=== PATIENT | female | born 1990 | race Caucasian/White ===

== ENCOUNTER → 2016-03-29 | Outpatient (REF) | LOC: ZLAB.WCH 11:32 | DX: Z01.89 Encounter for other specified special examinations (principal) ==

== ENCOUNTER → 2016-04-23 | Outpatient (REF) | LOC: ZLAB.WCH 09:11 | DX: Z01.89 Encounter for other specified special examinations (principal) ==

== ENCOUNTER → 2016-04-24 | Outpatient (REF) | LOC: ZLAB.WCH 10:53 | DX: Z01.89 Encounter for other specified special examinations (principal) ==

== ENCOUNTER → 2016-05-11 | Outpatient (REF) | LOC: ZLAB.WCH 15:07 | DX: Z01.89 Encounter for other specified special examinations (principal) ==

== ENCOUNTER → 2016-05-25 | Outpatient (REF) | LOC: ZLAB.WCH 16:57 | DX: Z01.89 Encounter for other specified special examinations (principal) ==

== ENCOUNTER → 2016-07-06 | Outpatient (REF) | LOC: ZLAB.WCH 10:24 | DX: Z01.89 Encounter for other specified special examinations (principal) ==

== ENCOUNTER → 2016-09-06 | Outpatient (REF) | LOC: ZLAB.WCH 10:15 | DX: Z01.89 Encounter for other specified special examinations (principal) ==

== ENCOUNTER → 2016-09-20 | Outpatient (REF) | LOC: ZLAB.WCH 10:38 | DX: Z01.89 Encounter for other specified special examinations (principal) ==

== ENCOUNTER → 2017-03-30 | Outpatient (REF) | LOC: COL.CARD 07:47 | DX: Z01.89 Encounter for other specified special examinations (principal) ==

== ENCOUNTER → 2017-04-04 | Outpatient (REF) ==
[~2017-04-04] MED LIST: CALCIUM CARBON650 M2; FERRO-TIME325 MG PO; IBU600 MG PO; PRENATAL MVI; UNISOM25 MG PO
== END ==
LOC: COL.CARD 08:21
DX: Z01.89 Encounter for other specified special examinations (principal)

== ENCOUNTER 2017-04-28 11:43 | Inpatient (IN) | payer OTHER ==
[~2017-04-28] VITALS: Ht 152.4 cm; Wt 70.0 kg
[2017-04-28] VITALS (28 sets, daily range): BP systolic 94–128; BP diastolic 54–87; PULSE 63–103; TEMP 97.8–99
[2017-04-28] MEDS ORDERED: PRENATAL MVI (12:08)
[2017-04-28] MEDS ORDERED: FERRO-TIME325 MG PO (12:08)
[2017-04-28] MEDS ORDERED: CALCIUM CARBON650 M2 (12:09)
[2017-04-28] MEDS ORDERED: UNISOM25 MG PO (12:09)
[2017-04-28 12:53] LABS: BASO % 0.4 % (0.0-2.0); EOS # 0.1 (0.0-0.7); EOS % 1.3 % (0-4.0); GRAN % 71.3 % (42.2-75.2); LYMPH # 1.8 (1.2-3.4); LYMPH % 18.5 % (20.0-51.0); MEAN CELL VOLUME 86 fl (80.0-100.0); MEAN CORPUSCULAR HEMOGLOBIN 30 pg (27.0-31.0); MEAN CORPUSCULAR HGB CONC 35 g/dl (33.0-37.0); MEAN PLATELET VOLUME 10.5 fl (7.4-10.4); MONO # 0.8 (0.1-0.6); MONO % 7.8 % (1.7-9.3); PLATELET COUNT 168 K/mm3 (130-400); RED BLOOD COUNT 4.01 M/mm3 (4.10-5.30); REDCELL DISTRIBUTION WIDTH-CV 13.3 % (11.5-14.5)
[2017-04-28 12:58] LABS: HEMATOCRIT 34.3 % (37.0-47.0)
[2017-04-29] VITALS (31 sets, daily range): BP systolic 96–138; BP diastolic 55–84; PULSE 72–111; TEMP 97.6–98.3
[2017-04-30 07:00] VITALS: BP 117/77; PULSE 78; TEMP 97.4
[2017-04-30 16:40] VITALS: BP 111/68; PULSE 77; TEMP 97.9
[2017-04-30 20:30] VITALS: BP 109/67; PULSE 81; TEMP 98.1
[2017-05-01 09:00] VITALS: BP 115/72; PULSE 89; TEMP 97.6
[2017-05-01] MEDS ORDERED: IBU600 MG PO (09:29)
[2017-05-01 17:00] VITALS: BP 105/71; PULSE 91; TEMP 97.5
[2017-05-01 19:45] VITALS: BP 122/78; PULSE 88; TEMP 98.2
== END 2017-05-01 20:45 | disposition home or self-care (01) | DRG 775 ==
LOC: LDRO 11:43 → LDR 11:45 → OB 11:45
PROVIDERS: Obstetrics & Gynecology
PROC: 10E0XZZ Delivery of Products of Conception, External Approach (ICD-10-PCS; principal; 2017-04-28)
PROC: 0KQM0ZZ Repair Perineum Muscle, Open Approach (ICD-10-PCS; 2017-04-28)
DX: O42.013 Preterm premature rupture of membranes, onset of labor within 24 hours of rupture, third trimester (principal); O36.0130 Maternal care for anti-D [Rh] antibodies, third trimester, not applicable or unspecified; O70.1 Second degree perineal laceration during delivery; Z3A.38 38 weeks gestation of pregnancy; Z37.0 Single live birth
CPT/HCPCS: J0290; J1580; J2590; J2791; J7120

== ENCOUNTER → 2017-05-04 | Outpatient (CLI) | payer OTHER | LOC: LAC 12:39 | DX: Z39.1 Encounter for care and examination of lactating mother (principal); Z71.89 Other specified counseling ==

== ENCOUNTER → 2017-05-07 | Outpatient (CLI) | payer OTHER | LOC: LAC 08:54 | DX: Z39.1 Encounter for care and examination of lactating mother (principal); Z71.89 Other specified counseling ==

== ENCOUNTER → 2017-05-10 | Outpatient (CLI) | payer OTHER | LOC: OLC 14:09 | DX: Z39.1 Encounter for care and examination of lactating mother (principal); Z71.89 Other specified counseling ==

== ENCOUNTER → 2017-05-24 | Outpatient (CLI) | payer OTHER | LOC: OLC 11:02 | DX: Z39.1 Encounter for care and examination of lactating mother (principal); Z71.89 Other specified counseling ==

== ENCOUNTER 2021-04-15 07:26 | Inpatient (IN) | payer BC ==
[~2021-04-15] VITALS: Ht 157.5 cm; Wt 77.9 kg
[2021-04-16] VITALS (43 sets, daily range): BP systolic 86–131; BP diastolic 50–80; PULSE 65–116; TEMP 93–98.8
--- NOTE | 2021-04-16 06:00 | NUR ---
PT AMBULATORY TO UNIT FOR SCHEDULED INDUCTION OF LABOR. DENIES LEAKING OF FLUID OR CONTRACTIONS. REPORTS POSITIVE MOVEMENT. PLACED ON EFM/TOCO. CATEGORY 1 STRIP WITH ACCELERATIONS AND NO DECELERATIONS NOTED. VITAL SIGNS STABLE. WILL CONTINUE WITH ADMISSION PROCESS PER PROTOCOL.
[2021-04-16] MEDS ORDERED: URSO FORTE500 MG PO (07:51)
[2021-04-16 08:44] LABS: MEAN CELL VOLUME 83 fl (80.0-100.0); MEAN CORPUSCULAR HGB CONC 34 g/dl (33.0-37.0); MEAN PLATELET VOLUME 10.7 fl (7.4-10.4); PLATELET COUNT 240 K/mm3 (130-400); RED BLOOD COUNT 3.33 M/mm3 (4.10-5.30); REDCELL DISTRIBUTION WIDTH-CV 14.5 % (11.5-14.5)
[2021-04-16 08:53] LABS: HEMATOCRIT 27.7 % (37.0-47.0); HEMOGLOBIN 9.4 g/dl (12.5-16.0); MEAN CORPUSCULAR HEMOGLOBIN 28 pg (27-31)
[2021-04-16 09:10] LABS: BAND 3 % (0-10); LYMPHOCYTE 12 % (20.0-51.0); MYELOCYTE 1 % (0-0); NEUTROPHILS 80 % (42.0-75.2); PLATELET ESTIMATE NORMAL (NORMAL)
[2021-04-16 09:53] LABS: ALBUMIN 2.9 gm/dL (3.5-5.0); BILIRUBIN,TOTAL 0.7 mg/dL (0.2-1.2); CALCIUM 8.7 mg/dL (8.4-10.2); CREATININE, serum 0.66 mg/dL (0.57-1.11); POTASSIUM 3.7 mmol/L (3.5-4.5); TOTAL PROTEIN 6.1 gm/dL (6.2-8.1)
--- NOTE | 2021-04-16 12:33 | NUR ---
PT SITTING ON EDGE OF BED FOR EPIDURAL PLACEMENT. DIFFICULTY TRACING EFM/TOCO DUE TO MATERNAL POSITIONING. LR BOLUS INFUSING. 1233: SINGLE SHOT PER GWEN BUSCH. PT TOLERATED PROCEDURE WELL. VITAL SIGNS REMAIN STABLE THROUGHOUT.
--- NOTE | 2021-04-16 15:00 | NUR ---
1508: AT BEDSIDE. SVE 6/90/0. PER EXAM PT IS MAKING RAPID CHANGE. RECURRENT DEEP VARIABLES WITH CONTRACTIONS. VERBAL ORDERS TO BEGIN AN AMNIOINFUSION. 1515: FSE & IUPC PLACED PER , AMNIOFUSION BEGINS INFUSING PER ORDER AND PROTOCOL. PT TOLERATING PROCEDURE WELL. 1530: SVE COMPLETE/+1 PER . ARMIJO CATHETER REMOVED. AMNIOINFUSION STOPPED @ 1533 PER VORB, 191ML INFUSED. PT BEGINS PUSHING AT THIS TIME WITH COACHING BY . RECURRENT DEEP VARIABLES CONTINUE. IUPC REMOVED. PALPATING CONTRACTIONS THROUGHOUT PUSHING EFFORTS. ROOM PREPARED FOR DELIVERY. 1542: OF VIABLE FEMALE INFANT AT THIS TIME. NUCHAL X1 NOTED AT DELIVERY. INFANT PLACED ON MATERNAL ABDOMEN, STRONG CRY NOTED. CARE OF INFANT ASSUMED BY MARISSARN. CORD CLAMPED X2 AND CUT BY FOB. 1547: OF PLACENTA. PITOCIN INFUSING PER PROTOCOL. BEGINS REPAIR OF SECOND DEGREE LACERATION. FOLLOWING REPAIR FUNDUS REMAINS FIRM AT UMBILICUS, LOCHIA SCANT WITH MASSAGE. NO CLOTS NOTED.
--- NOTE | 2021-04-16 18:15 | NUR ---
PT REPORTS FULL SENSATION TO BLE. ABLE TO RAISE AND HOLD X5 SECONDS EACH LEG.F FUNDUS FIRM AT UMBILICUS, LOCHIA SCANT WITH NO CLOTS NOTED. VITAL SIGNS STABLE. ASSISTED TO SITTING POSITION. EPIDURAL CATHETER REMOVED BY THIS RN, BANDAID APPLIED. PT ASSISTED TO STANDING POSITION AND WITH STEADY GAIT AMBULATED TO RESTROOM. MALINI CARE, CLEAN PAD/ICEPACK/UNDERWEAR, CLEAN GOWN, AND CLEAN UNDERWEAR ALL PROVIDED BY THIS NURSE. PT TOLERATED AMBULATION WELL, DENIES DIZZINESS OR FEELING FAINT. ORIENTED TO ROOM. DENIES FURTHER QUESTIONS OR CONCERNS.
[2021-04-17 00:30] VITALS: BP 103/51; PULSE 86; TEMP 98.1
[2021-04-17 07:30] VITALS: BP 103/64; PULSE 79; TEMP 98.1
[2021-04-17] MEDS ORDERED: IBU800 M1 PO (08:43)
[2021-04-17 17:13] VITALS: BP 117/75; PULSE 80; TEMP 97.9
[2021-04-17 19:30] VITALS: BP 110/66; PULSE 82; TEMP 97.9
[2021-04-18 07:30] VITALS: BP 113/70; PULSE 84; TEMP 97.5
== END 2021-04-18 12:40 | disposition home or self-care (01) | DRG 805 ==
LOC: LDR 04-16 05:56 → OB 04-16 18:22
PROVIDERS: ADMIT Student in an Organized Health Care Education/Training Program
PROC: 10E0XZZ Delivery of Products of Conception, External Approach (ICD-10-PCS; principal; 2021-04-16)
PROC: 10D17Z9 Manual Extraction of Products of Conception, Retained, Via Natural or Artificial Opening (ICD-10-PCS; 2021-04-16)
PROC: 0KQM0ZZ Repair Perineum Muscle, Open Approach (ICD-10-PCS; 2021-04-16)
PROC: 3E0P7VZ Introduction of Hormone into Female Reproductive, Via Natural or Artificial Opening (ICD-10-PCS; 2021-04-16)
PROC: 3E033VJ Introduction of Other Hormone into Peripheral Vein, Percutaneous Approach (ICD-10-PCS; 2021-04-16)
PROC: 10907ZC Drainage of Amniotic Fluid, Therapeutic from Products of Conception, Via Natural or Artificial Opening (ICD-10-PCS; 2021-04-16)
DX: O26.62 Liver and biliary tract disorders in childbirth (principal); K83.1 Obstruction of bile duct; Z37.0 Single live birth; O99.02 Anemia complicating childbirth; D64.9 Anemia, unspecified; O69.1XX0 Labor and delivery complicated by cord around neck, with compression, not applicable or unspecified; O70.1 Second degree perineal laceration during delivery; O76 Abnormality in fetal heart rate and rhythm complicating labor and delivery; O26.893 Other specified pregnancy related conditions, third trimester; Z67.41 Type O blood, Rh negative; Z23 Encounter for immunization; Z3A.35 35 weeks gestation of pregnancy
CPT/HCPCS: J2590; J2791; J7030; J7120

== ENCOUNTER 2023-04-19 21:44 | Inpatient (IN) | payer OTHER ==
[~2023-04-19] VITALS: Ht 157.5 cm; Wt 75.0 kg
[~2023-04-19 21:44] MED LIST changes: +IBU800 M1 PO; +URSO FORTE500 MG PO
[2023-04-19 21:50] VITALS: BP 123/85; PULSE 102; TEMP 98.6
--- NOTE | 2023-04-19 21:50 | NUR ---
PT PRESENTS TO L&D WITH COMPLAINT OF CONTRACTIONS AND ROM AT 1900. SHE A A SMALL AMT OF FLUID COME OUT THAT WAS CLEAR. PT CHANGED INTO GOWN AND PLACED ON THE MONITORS. FHR 155 WITH PROLONG DECEL NOTED FOR 3 MINS. PT TURNED TO LEFT SIDE. OCYGEN [address] SCHULZ IN ROOM. SVE 5/80/-2. 2210 IV STARTED WITH 18 G IN LEFT HAND, IV BOLUS OF LR INFUSING VIAL GRAVITY. 2217 PT WAS ASSISTED TO KNEE CHEST POSITION. 2229 PT REQUESTING TO GET OUT OF KNEE CHEST BECAUSE SHE IS CRAMPING AND HURTING. POSITONED PT TO LEFT LATERAL POSITION. 2240 YUNIOR EXCELLENCE SPECIALIST HERE TO PLACE EPIDURAL. PT ASSISTED TO SITTING POSITION WHILE HOLDING THE EXTERNAL FHR MONITOR IN PLACE. 2246 SINGLE SHOT IN EPIDURAL DONE. 2312 AROM FLUID CLEAR. O2 REMAINS ON VIA MASK AT 10 L. SVE 7/90/-2.AROM FLUID CLEAR. 2328 FSE PLACED FOR BETTER QUALITY READING. 2326 SVE 9/90/O [address] SCHULZ HERE PT TO SEMI FOWLERS POSITON. PT PLACE IN FOOT REST FOR DELIVERY. 2351 VAG DELIVERY FEMALE .2ND DEGREE LAC. WITH REPAIR. 2356 DELIVERY OF PLACENTA
[2023-04-19] MEDS ORDERED: LR 1,000 ML IV SCH (22:15)
[2023-04-19 22:25] LABS: BASO % 0.2 % (0.0-2.0); EOS % 0.3 % (0.0-4.0); GRAN # 6.1 K/mm3 (1.4-6.5); GRAN % 70.6 % (42.2-75.2); LYMPH # 1.8 K/mm3 (1.2-3.4); LYMPH % 20.2 % (20.0-51.0); MEAN CELL VOLUME 85 fl (80.0-100.0); MEAN CORPUSCULAR HEMOGLOBIN 29 pg (27-31); MEAN CORPUSCULAR HGB CONC 34 g/dl (33.0-37.0); MONO # 0.7 K/mm3 (0.1-0.6); MONO % 8.2 % (1.7-9.3); PLATELET COUNT 172 K/mm3 (130-400); REDCELL DISTRIBUTION WIDTH-CV 14.5 % (11.5-14.5)
[2023-04-19 22:33] LABS: HEMATOCRIT 32.1 % (37.0-47.0)
[2023-04-19 22:50] VITALS: PULSE 89
[2023-04-19 23:10] VITALS: PULSE 84
[2023-04-19] MEDS ORDERED: LR & Oxytocin 500 ML IV SCH (23:30)
[2023-04-20] VITALS (7 sets, daily range): BP systolic 96–123; BP diastolic 56–86; PULSE 68–94; TEMP 97.9–98.1
[2023-04-20] MEDS ORDERED: Witch Hazel 50% Pads Bulk TUB TP PRN (00:15)
[2023-04-20] MEDS ORDERED: Mag/Al Hydrox/Simeth Susp 30 ML CUP PO PRN (00:15)
[2023-04-20] MEDS ORDERED: Ibuprofen 800 MG TAB PO SCH (00:15)
[2023-04-20] MEDS ORDERED: Loratadine 10 MG TAB PO PRN (00:15)
[2023-04-20] MEDS ORDERED: Measles/Mumps/Rubella Virus Vaccine Live w Diluent 0.5 ML VIAL SQ SCH (00:15)
[2023-04-20] MEDS ORDERED: Phenylephrine/Mineral Oil/Petrolatum 57 GM TUBE RC PRN (00:15)
[2023-04-20] MEDS ORDERED: Magnes Hydrox (MOM) 80 MG/ML 30 ML CUP PO PRN (00:15)
[2023-04-20] MEDS ORDERED: Naloxone 0.4 MG/ML VIAL IV PRN (00:15)
[2023-04-20] MEDS ORDERED: Acetaminophen 500 MG TAB PO SCH (00:15)
--- NOTE | 2023-04-20 06:30 | NUR ---
RN AT BEDSIDE. PT REQUESTED TUCKS AND ICE PACK PADS. ID BAND PLACED ON PATIENT AND HAT PLACED IN TOILET AFTER UNMEASURED VOID. DISCUSSED POC. PT AGREES.
[2023-04-20] MEDS ORDERED: Sennosides/Docusate 8.6-50 MG TAB PO SCH (08:00)
--- NOTE | 2023-04-20 09:46 | NUR ---
Initial visit attempt; Family resting, Interior Surface Insulation Worker left card offering congratulations and God's blessings for the of their daughter. Interior Surface Insulation Worker mentioned that Spiritual Care is also available at our hospital on the card.
[2023-04-20] MEDS ORDERED: Rho(D) Imm Globulin 1,500 UNITS (300 MCG)/2 ML SYRINGE IV\\IM SCH (10:00)
[2023-04-20] MEDS ORDERED: traZODone 50 MG TAB PO PRN (21:00)
[2023-04-21 07:30] VITALS: BP 121/76; PULSE 80; TEMP 98
[2023-04-21] MEDS ORDERED: TYLENOL 500MG500 MG PO (08:36)
== END 2023-04-21 10:15 | disposition home or self-care (01) | DRG 806 ==
LOC: LDRO 21:44 → LDR 22:05 → OB 22:05
PROVIDERS: ADMIT Student in an Organized Health Care Education/Training Program
PROC: 10E0XZZ Delivery of Products of Conception, External Approach (ICD-10-PCS; principal; 2023-04-20)
PROC: 0KQM0ZZ Repair Perineum Muscle, Open Approach (ICD-10-PCS; 2023-04-20)
DX: O99.02 Anemia complicating childbirth (principal); E72.12 Methylenetetrahydrofolate reductase deficiency; Z37.0 Single live birth; O26.62 Liver and biliary tract disorders in childbirth; K76.0 Fatty (change of) liver, not elsewhere classified; O70.1 Second degree perineal laceration during delivery; O26.893 Other specified pregnancy related conditions, third trimester; O76 Abnormality in fetal heart rate and rhythm complicating labor and delivery; O69.81X0 Labor and delivery complicated by cord around neck, without compression, not applicable or unspecified; O99.284 Endocrine, nutritional and metabolic diseases complicating childbirth; Z67.41 Type O blood, Rh negative; Z3A.38 38 weeks gestation of pregnancy; Z23 Encounter for immunization
CPT/HCPCS: J2590; J2791; J2795; J7120